=== PATIENT | female | born 1975 | race Caucasian/White ===

== ENCOUNTER 2021-05-17 11:05 | Emergency (ER) | payer OTHER ==
[~2021-05-17] VITALS: Ht 167.6 cm; Wt 89.5 kg
[2021-05-17 12:03] VITALS: BP 142/85
[2021-05-17] MEDS ORDERED: LIDO30CR TOP (12:35)
[2021-05-17] MEDS ORDERED: DIPH25CA83 PO (12:35)
[2021-05-17] MEDS ORDERED: FAMO-128 PO (12:35)
== END 2021-05-17 13:36 | disposition home or self-care (01) ==
LOC: ER 11:05
DX: R21 Rash and other nonspecific skin eruption (principal); Z88.0 Allergy status to penicillin; Z88.5 Allergy status to narcotic agent
CPT/HCPCS: 99283

== ENCOUNTER 2023-06-04 07:36 | Emergency (ER) | payer BC ==
[~2023-06-04] VITALS: Ht 167.6 cm; Wt 88.0 kg
[~2023-06-04 07:36] MED LIST: DIPH25CA83 PO; FAMO-128 PO; LIDO30CR TOP
[2023-06-04 07:48] VITALS: BP 149/81; TEMP 98.1
[2023-06-04] MEDS ORDERED: ipratropium/albuterol 3ml nebule NEB ONE (09:25)
[2023-06-04 09:46] VITALS: PULSE 86; RESP 16
[2023-06-04 09:52] VITALS: PULSE 85; RESP 18; O2SAT 98
[2023-06-04] MEDS ORDERED: NEBU-237 (10:09)
[2023-06-04] MEDS ORDERED: METH4TAB81 PO (10:09)
[2023-06-04] MEDS ORDERED: IPRA3AMP9 IH (10:09)
[2023-06-04] MEDS ORDERED: ALBU8HFA INH (10:09)
== END 2023-06-04 10:36 | disposition home or self-care (01) ==
LOC: ER 07:37
DX: J98.01 Acute bronchospasm (principal); Z20.822 Contact with and (suspected) exposure to COVID-19; Z88.0 Allergy status to penicillin; Z88.5 Allergy status to narcotic agent; Z88.1 Allergy status to other antibiotic agents; Z79.899 Other long term (current) drug therapy
CPT/HCPCS: 36415; 87811; 94640; 94760; 99283